=== PATIENT | female | born 1990 | race Asian ===

== ENCOUNTER 2020-03-30 13:32 | Emergency (ER) | payer OTHER ==
[2020-03-30] MEDS ORDERED: LIDOCAINE HCL/EPINEPHRINE/PF 10 ML VIAL NR ONE (13:46)
[2020-03-30] MEDS ORDERED: LIDO 2%/EPI 1:200000 PRESRVFRE (20 ML SDVIAL) ONE (13:48)
[2020-03-30] MEDS ORDERED: DIPHTH,PERTUSS(ACELL),TET 0.5 ML DISP.SYRIN IM ONE ×2 (13:49→14:00)
[2020-03-30 13:59] VITALS: BP 121/78; PULSE 92; TEMP 97.3; BMI 19.0
== END 2020-03-30 14:41 | disposition home or self-care (01) ==
LOC: FER 13:32
PROC: 0HQGXZZ Repair Left Hand Skin, External Approach (ICD-10-PCS; principal; 2020-03-30)
PROC: 3E0234Z Introduction of Serum, Toxoid and Vaccine into Muscle, Percutaneous Approach (ICD-10-PCS; 2020-03-30)
DX: S61.305A Unspecified open wound of left ring finger with damage to nail, initial encounter (principal)
CPT/HCPCS: 90715; 99284-25